=== PATIENT | female | born 1990 | race Two or more races ===

== ENCOUNTER 2019-08-17 02:48 | Inpatient (IN) | payer OTHER ==
[~2019-08-17] VITALS: Ht 162.6 cm; Wt 2.7 kg
[2019-08-17] MEDS ORDERED: PRENATAL TABLE1 EAC1 PO (03:07)
[2019-08-20] MEDS ORDERED: COLACE100 MG PO (12:15)
[2019-08-20] MEDS ORDERED: SIMETHICONE125 M1 PO (12:15)
[2019-08-20] MEDS ORDERED: IBU600 MG PO (12:16)
== END 2019-08-20 13:48 | DRG 788 ==
LOC: OBS/DEL 02:48 → LDR 10:53 → OB/GYN 10:53
PROVIDERS: ADMIT Obstetrics & Gynecology; ATTEND Obstetrics & Gynecology
PROC: 4A0HXFZ Measurement of Products of Conception, Cardiac Rhythm, External Approach (ICD-10-PCS; 2019-08-17)
PROC: 10D00Z1 Extraction of Products of Conception, Low, Open Approach (ICD-10-PCS; principal; 2019-08-17 16:00)
DX: O82 Encounter for cesarean delivery without indication (principal); O76 Abnormality in fetal heart rate and rhythm complicating labor and delivery; Z3A.38 38 weeks gestation of pregnancy; Z37.0 Single live birth